=== PATIENT | female | born 1980 | race Caucasian/White ===

== ENCOUNTER 2017-01-17 22:27 | Emergency (ER) | payer SELFPAY ==
[2017-01-17 23:12] LABS: BASO % 0.5 % (0-6); EOS % 4.8 % (0-6); GRAN % 41.5 % (47-80); HEMATOCRIT 34.8 % (35.0-47.0); HEMOGLOBIN 11.6 gm/dl (11.6-16.0); LYMPH % 38.3 % (16-45); MEAN CELL VOLUME 85.9 fl (81-97); MEAN CORPUSCULAR HEMOGLOBIN 28.6 pg (27-33); MEAN CORPUSCULAR HGB CONC 33.3 g/dl (32-36); MEAN PLATELET VOLUME 10.7 fl (7.4-10.4); MONO % 14.9 % (0-9); PLATELET COUNT 188 K/uL (130-400); RED BLOOD COUNT 4.05 M/uL (3.80-5.40); RED CELL DISTRIBUTION WIDTH 12.9 % (11.5-14.5); WHITE BLOOD COUNT W/O DIFF 3.8 K/uL (4.2-12.2)
[2017-01-17 23:23] LABS: ALB/GLOB RATIO 1.2 (1.1-1.8); ALBUMIN 3.6 gm/dL (3.5-5.0); ALKALINE PHOSPHATASE 87 U/L (38-126); ALT/SGPT 85 U/L (9-52); ANION GAP 5.8 (7-16); AST/SGOT 72 U/L (14-36); BILIRUBIN,TOTAL 0.56 mg/dL (0.2-1.3); BLOOD UREA NITROGEN 12 mg/dL (7-17); C-REACTIVE PROTEIN 1.6 mg/dL (0.0-0.9); CARBON DIOXIDE 25.2 mmol/L (22-30); CREATININE 0.9 mg/dL (0.52-1.04); EST GLOMERULAR FILTRATION RATE > 60 ml/min; GLUCOSE,RANDOM 97 mg/dL (70-110); TOTAL PROTEIN 6.5 gm/dL (6.3-8.2)
--- NOTE | 2017-01-17 23:24 | Emergency Department Record ---
History of Present Illness - General Chief complaint: Pain Stated complaint: SWELLING IN HANDS,FACE,LEGS AND LOWR BACK PAIN Time Seen by Provider: 01/17/17 22:48 Source: Patient Mode of Arrival: Ambulatory Limitations: No limitations - History of Present Illness Initial comments: The patient is here due to feeling like her whole body is swollen and aching and that she is having diffuse pain over her entire back area. She denies any AP , nausea, vomiting, diarrhea, or fevers. Additionally she is feeling like her hands are swollen and she is unable to move them well due to the edema. She denies any similar issues in the past and no recent illnesses. MD Complaint: Extremity pain Onset/Timin -: Days(s) Severity scale (1-10): 9 Quality: Aching Consistency: Constant, Getting worse Improves with: Nothing Worsens with: Palpation, Walking, Weight bearing Associated Symptoms: Myalgias - Related Data Home Medications Medication Instructions Recorded Confirmed Last Taken Lisinopril [Zestril] 5 mg PO DAILY 01/17/17 01/17/17 Unknown Previous Rx's Medication Instructions Recorded Furosemide [Lasix] 20 mg PO DAILY #7 tablet 01/17/17 Potassium Chloride [Klor-Con] 20 meq PO DAILY #7 tab.prt.sr 01/17/17 Tramadol HCl 50 mg PO Q8H #20 tab 01/17/17 Allergies Allergy/AdvReac Type Severity Reaction Status Date / Time bupropion [From Wellbutrin] Allergy RASH Verified 01/17/17 22:42 citalopram [From Celexa] Allergy RASH Verified 01/17/17 22:42 eletriptan [From Relpax] Allergy ANAPHYLAXIS Verified 01/17/17 22:42 gabapentin Allergy RASH Verified 01/17/17 22:42 pregabalin [From Lyrica] Allergy SWELLING Verified 01/17/17 22:42 (GENERAL) venlafaxine [From Effexor] Allergy RASH Verified 01/17/17 22:42 NSAIDS (Non-Steroidal AdvReac 1 kidney Verified 01/17/17 22:42 Anti-Inflamma Travel Screening - Travel/Exposure Within Last 30 Days Have you traveled within the last 30 days?: No Review of Systems Constitutional: Denies: Chills, Fever Eyes: Denies: Eye discharge ENT: Denies: Congestion Respiratory: Denies: Cough, Dyspnea Past Medical History - SOCIAL HISTORY Smoking Status: Never smoker Alcohol Use: None Drug Use: None - RESPIRATORY Hx Respiratory Disorders: No - CARDIOVASCULAR Hx Cardio Disorders: Yes Hx Hypertension: Yes - NEURO Hx Neuro Disorders: No - GI Hx GI Disorders: No - Hx Genitourinary Disorders: Yes Comment:: 1 working kidney - ENDOCRINE Hx Endocrine Disorders: No - MUSCULOSKELETAL Hx Musculoskeletal Disorders: Yes - PSYCH Hx Psych Problems: No - HEMATOLOGY/ONCOLOGY Hx Hematology/Oncology Disorders: No Family Medical History Any Significant Family History?: Yes Hx Cancer: Mother Hx Diabetes: Mother *Heart Comment: Uncle Physical Exam - General General Appearance: Alert, Oriented x3, Cooperative, No acute distress - Head Head exam: Atraumatic, Normocephalic, Normal inspection - Eye Eye exam: Normal appearance, PERRL - ENT Throat exam: Normal inspection. negative: Tonsillar erythema, Tonsillar exudate - Neck Neck exam: Normal inspection, Full ROM. negative: Tenderness - Respiratory Respiratory exam: Normal lung sounds bilaterally. negative: Respiratory distress - Cardiovascular Cardiovascular Exam: Regular rate, Normal rhythm, Normal heart sounds - GI/Abdominal GI/Abdominal exam: Soft, Normal bowel sounds. negative: Tenderness - Extremities Extremities exam: Normal inspection, Pedal edema (1+ bilaterally.), Tenderness ( There is diffuse hand tenderness but no erythema, warmth or tenderness.). negative: Full ROM, Joint swelling - Back Back exam: Reports: Normal inspection, Paraspinal tenderness (There is diffuse paraspinal muscular tenderness over the thoracic and lumbar areas.). Denies: Vertebral tenderness - Neurological Neurological exam: Alert, Normal gait, Oriented X3, Reflexes normal. negative: Abnormal gait, Altered, Motor sensory deficit - Psychiatric Psychiatric exam: Depressed Course Vital Signs 01/17/17 22:42 Temperature 99.2 F Pulse Rate 110 H Respiratory 18 Rate Blood Pressure 142/93 Pulse Ox 98 - Reevaluation(s) Reevaluation #1: The patient is resting comfortably but is still having the total extremity pain and diffuse back pain. Due to her allergies I am unable to give her Toradol and am unwilling to treat the patient with a Narcotic due to her chronic pain issues. We will start Tramadol and Lasix and have her F/U with her PCP in 2-3 days for recheck and possibly further testing. 01/17/17 23:49 Reevaluation #2: I did discuss the slightly elevated liver enzymes and the very mild protein in the urine. She is to F/U with her PCP for recheck. 01/17/17 23:50 Medical Decision Making - Data Complexity MDM Data: Labs Ordered and/or Reviewed - Lab Data Result diagrams: 01/17/17 23:03 01/17/17 23:03 Lab Results 01/17/17 Range/Units 23:03 WBC 3.8 L (4.2-12.2) K/uL RBC 4.05 (3.80-5.40) M/uL Hgb 11.6 (11.6-16.0) gm/dl Hct 34.8 L (35.0-47.0) % MCV 85.9 (81-97) fl MCH 28.6 (27-33) pg MCHC 33.3 (32-36) g/dl RDW 12.9 (11.5-14.5) % Plt Count 188 (130-400) K/uL MPV 10.7 H (7.4-10.4) fl Gran % 41.5 L (47-80) % Lymphocytes % 38.3 (16-45) % Monocytes % 14.9 H (0-9) % Eosinophils % 4.8 (0-6) % Basophils % 0.5 (0-6) % Disposition Disposition: Discharge Clinical Impression: Edema Qualifiers: Edema type: unspecified Qualified Code(s): R60.9 - Edema, unspecified Disposition: Home, Self-Care Condition: (1) Good Instructions: Leg Edema (ED) Additional Instructions: Please continue your regular medicines and add the Tramadol, Lasix and Potassium. Please see your PCP in 2-3 days for recheck and bring your lab results. Return to the ER if worse. Prescriptions: Furosemide [Lasix] 20 mg PO DAILY #7 tablet Potassium Chloride [Klor-Con] 20 meq PO DAILY #7 tab.prt.sr Tramadol HCl 50 mg PO Q8H #20 tab Forms: Patient Portal Access Time of Disposition: 23:54
[2017-01-17 23:36] LABS: URINE APPEARANCE CLEAR; URINE BILIRUBIN NEGATIVE (NEGATIVE); URINE BLOOD NEGATIVE (NEGATIVE); URINE COLOR YELLOW; URINE GLUCOSE (UA) NEGATIVE (NEGATIVE); URINE KETONE NEGATIVE (NEGATIVE); URINE LEUKOCYTE ESTERASE NEGATIVE (NEGATIVE); URINE NITRITE NEGATIVE (NEGATIVE); URINE UROBILINOGEN 0.2 E.U./dL (0.20 - 1.00)
[2017-01-17 23:39] LABS: HCG,QUALITATIVE URINE NEGATIVE (NEGATIVE)
[2017-01-17] MEDS ORDERED: FUROSEMIDE 20 MG TABLET PO ONE (23:47)
[2017-01-17] MEDS ORDERED: TRAMADOL HCL 50 MG TABLET PO ONE (23:47)
== END 2017-01-18 00:03 | disposition home or self-care (01) ==
LOC: ER 22:27
DX: R60.1 Generalized edema (principal); R74.8 Abnormal levels of other serum enzymes; R80.9 Proteinuria, unspecified; M54.5 Low back pain; M54.6 Pain in thoracic spine; G89.29 Other chronic pain; I10 Essential (primary) hypertension
CPT/HCPCS: 80053; 81003; 81025; 84443; 85025; 86140; 99283; 99284